=== PATIENT | female | born 2000 | race Caucasian/White ===

== ENCOUNTER 2024-12-08 16:55 | Emergency (ER) | payer BC ==
[~2024-12-08] VITALS: Ht 157.5 cm; Wt 97.5 kg
[2024-12-08 17:51] LABS: *BILIRUBIN,URIN NEGATIVE (NEGATIVE); *BLOOD, URINE NEGATIVE (NEGATIVE); *CLARITY,URINE CLEAR (CLEAR); *COLOR,URINE YELLOW (YELLOW); *KETONES,URINE NEGATIVE (NEGATIVE); *PROTEIN,URINE NEGATIVE (NEGATIVE); *UROBILINOGEN,URINE 0.2 E.U./dl (NORMAL); LEUKOCYTE ESTERASE ,URINE 1+ (NEGATIVE); NITRITE, URINE NEGATIVE (NEGATIVE); UGLUCOSE NEGATIVE (NEGATIVE)
[2024-12-08 18:00] LABS: BACTERIA,URINE FEW /HPF (NONE SEEN); RBC,URINE 0-3 /HPF (0-3); SQUAMOUS EPITHELIAL CELL,UR MODERATE /HPF (NONE SEEN)
[2024-12-08 18:14] LABS: BASOPHILS % (AUTO) 0.5 % (0.0-2.0); EOSINOPHILS # (AUTO) 0.1 K/uL (0.0-0.7); EOSINOPHILS % (AUTO) 0.5 % (0.0-7.0); HEMATOCRIT 41.1 % (31.2-41.9); HEMOGLOBIN 13.9 g/dL (10.9-14.3); LYMPHOCYTES # (AUTO) 2.3 K/uL (0.8-4.8); LYMPHOCYTES % (AUTO) 21.5 % (20.5-51.5); MEAN CORPUSCULAR HEMOGLOBIN 29.5 uug (24.7-32.8); MEAN CORPUSCULAR HGB CONC 34 g/dL (32.3-35.6); MEAN CORPUSCULAR VOLUME 87.1 fL (75.5-95.3); MONOCYTES # (AUTO) 0.5 K/uL (0.1-1.30); MONOCYTES % (AUTO) 4.4 % (0.0-11.0); NEUTROPHILS # (AUTO) 7.8 K/uL (1.8-8.9); NEUTROPHILS % (AUTO) 73.1 % (38.5-71.5); PLATELET COUNT (AUTO) 342 K/uL (179-408); RED BLOOD CELL COUNT(AUTO) 4.72 MIL/uL (3.63-4.92); WHITE BLOOD COUNT (AUTO) 10.6 K/uL (3.8-11.8)
[2024-12-08 18:16] LABS: DIFFERENTIAL COMMENT 1
[2024-12-08 18:19] LABS: CALCIUM 9.2 mg/dL (8.5-10.1); CARBON DIOXIDE 21 mmol/L (21-32); CHLORIDE 103 mmol/L (98-107); CREATININE 0.5 mg/dL (0.6-1.3); GLUCOSE 108 mg/dL (74-106); POTASSIUM 3.9 mmol/L (3.5-5.1); SODIUM SERUM 139 mmol/L (136-145); UREA NITROGEN, BLOOD 7 mg/dL (7-18)
[2024-12-08 18:25] LABS: ALANINE AMINOTRANSFERASE 32 U/L (14-59); ALBUMIN 3.6 g/dL (3.4-5.0); ALKALINE PHOSPHATASE 96 U/L (50-136); ASPARTATE AMINOTRANSFERASE 14 U/L (15-37); BILIRUBIN,DIRECT 0.2 mg/dL (0.0-0.2); BILIRUBIN,TOTAL 0.8 mg/dL (0.2-1.0)
[2024-12-08] MEDS ORDERED: NITR100C11 PO (19:04)
[2024-12-08] MEDS ORDERED: PREN1CAP35 PO (19:04)
[2024-12-08 19:11] VITALS: BP 118/61; TEMP 97.8; O2SAT 99
== END 2024-12-08 19:12 | disposition home or self-care (01) ==
LOC: ER 16:55
DX: O23.41 Unspecified infection of urinary tract in pregnancy, first trimester (principal); O26.891 Other specified pregnancy related conditions, first trimester; R10.31 Right lower quadrant pain; R10.2 Pelvic and perineal pain; Z3A.01 Less than 8 weeks gestation of pregnancy
CPT/HCPCS: 36415; 76856; 85025; 85730; 86850; 86900; 86901; 87086; A4606; A4663

== ENCOUNTER 2024-12-19 00:34 | Emergency (ER) | payer BC ==
[~2024-12-19] VITALS: Ht 157.5 cm; Wt 99.8 kg
[~2024-12-19 00:34] MED LIST: NITR100C11 PO; PREN1CAP35 PO
[2024-12-19 03:54] VITALS: BP 122/85; O2SAT 98
== END 2024-12-19 02:35 | disposition home or self-care (01) ==
LOC: ER 00:38
DX: O20.0 Threatened abortion (principal); O99.331 Smoking (tobacco) complicating pregnancy, first trimester; F17.210 Nicotine dependence, cigarettes, uncomplicated; Z3A.10 10 weeks gestation of pregnancy
CPT/HCPCS: 36415; 70030-TC; A4606; A4663

== ENCOUNTER 2025-01-03 00:24 | Emergency (ER) | payer BC ==
[~2025-01-03] VITALS: Ht 157.5 cm; Wt 99.8 kg
[2025-01-03] MEDS ORDERED: LIDOCAINE HCL 1% 20 ML VIAL ONE (02:36)
[2025-01-03] MEDS ORDERED: CEFTRIAXONE 1 G VIAL ONE (02:36)
[2025-01-03] MEDS: CEFTRIAXONE 1 G VIAL IM ONE (02:40)
[2025-01-03 03:13] VITALS: BP 125/75; TEMP 98.1; O2SAT 97
[2025-01-05 10:07] LABS: CHLAMYDIA TRACHOMATIS NAA Negative (Negative); NEISSERIA GONORRHOEAE NAA Negative (Negative)
== END 2025-01-03 02:55 | disposition home or self-care (01) ==
LOC: ER 00:31
DX: O20.0 Threatened abortion (principal); O99.331 Smoking (tobacco) complicating pregnancy, first trimester; F17.210 Nicotine dependence, cigarettes, uncomplicated; Z3A.10 10 weeks gestation of pregnancy
CPT/HCPCS: 99285; 76856; 99406; 86850; 86900; 86901; 84702; 36415; 96372; 87491; 87591; J0696; J3490; A4606; A4663